=== PATIENT | male | born 1985 | race Caucasian/White ===

== ENCOUNTER 2017-02-15 04:27 | Emergency (ER) | payer SELFPAY ==
[2017-02-15] MEDS ORDERED: ADDERALL 2020 MG/TAB PO (04:32)
[2017-02-15] MEDS ORDERED: ERYTHROMYCIN1 GM LEFT EYE (05:08)
== END 2017-02-15 05:15 ==
LOC: EDMED 04:27
PROC: 08C1XZZ Extirpation of Matter from Left Eye, External Approach (ICD-10-PCS; principal; 2017-02-15)
DX: T15.92XA Foreign body on external eye, part unspecified, left eye, initial encounter (principal); F90.9 Attention-deficit hyperactivity disorder, unspecified type; Z23 Encounter for immunization; Z79.899 Other long term (current) drug therapy